=== PATIENT | male | born 1950 | race Caucasian/White ===

== ENCOUNTER 2019-05-13 13:39 | Emergency (ER) | payer OTHER ==
[~2019-05-13] VITALS: Ht 170.2 cm; Wt 80.7 kg
--- NOTE | 2019-05-13 14:30 | NUR ---
patient BIBRA c/o weakness, and sob x 3 days. On 02 @3lpm via [place]. Connected to the monitor and pulse ox. kept comfortable, will continue to monitor accordingly.
[2019-05-13 14:53] LABS: BASOPHILS # (AUTO) 0.1 /CMM (0.0-0.2); BASOPHILS % (AUTO) 0.9 % (0.0-2.0); EOSINOPHILS % (AUTO) 2.1 % (0.0-6.0); HEMATOCRIT 34 % (39-51); HEMOGLOBIN 10.7 g/dL (13.5-17.5); LYMPHOCYTES # (AUTO) 1.1 /CMM (0.8-4.8); LYMPHOCYTES % (AUTO) 12.5 % (20.0-44.0); MEAN CORPUSCULAR HGB CONC 31 g/dl (31.0-36.0); MEAN CORPUSCULAR VOLUME 82 fL (80-96); MONOCYTES # (AUTO) 0.9 /CMM (0.1-1.30); MONOCYTES % (AUTO) 10.7 % (2.0-12.0); NEUTROPHILS # (AUTO) 6.4 /CMM (1.8-8.9); NEUTROPHILS % (AUTO) 73.8 % (43.0-81.0); PLATELET COUNT (AUTO) 249 /CMM (150-450); RED BLOOD CELL COUNT(AUTO) 4.15 MIL/uL (4.5-6.0); WHITE BLOOD COUNT (AUTO) 8.6 K/uL (4.3-11.0)
[2019-05-13 15:02] LABS: CALCIUM, SERUM 8.8 mg/dL (8.5-10.1); CARBON DIOXIDE 35 mmol/L (21-32); CHLORIDE 105 mmol/L (98-107); CREATININE 0.7 mg/dL (0.6-1.3); GLUCOSE 105 mg/dL (74-106); POTASSIUM 4.3 mmol/L (3.5-5.1); SODIUM SERUM 146 mmol/L (136-145); UREA NITROGEN, BLOOD 18 mg/dL (7-18)
[2019-05-13 15:15] LABS: B-TYPE NATRIURETIC PEPTIDE 470 PG/ML (0-125)
[2019-05-13 15:36] LABS: ABG BASE EXCESS 5.8 mmol/L; ABG OXYGEN SATURATION 89.3 % (92.0-98.5); ABG PCO2 48.2 mmHg (35.0-45.0); ABG PH 7.427 (7.350-7.450); COHb 1.3 % (0.5-1.5); MetHb 0.5 % (0.0-1.5); O2Hb 87.7 % (94.0-97.0); SITE, ABG Right Brachial; VENT MODE, BG NASAL CANNULA
[2019-05-13] MEDS ORDERED: FUROSEMIDE 100 MG/10 ML VIAL ONE (15:58)
--- NOTE | 2019-05-13 15:59 | NUR ---
CALLED [facility], AWAITING FOR CALL FROM [place] [facility]
[2019-05-13] MEDS: FUROSEMIDE 40 MG/4 ML VIAL IV ONE (16:00)
[2019-05-13] MEDS ORDERED: LATA2.5D7 EACHEYE (17:01)
[2019-05-13] MEDS ORDERED: OLAN2.5T3 PO (17:01)
[2019-05-13] MEDS ORDERED: LISI-603 PO (17:01)
[2019-05-13] MEDS ORDERED: HYDR-4076 PO (17:01)
[2019-05-13] MEDS ORDERED: HYDR-4384 PO (17:01)
[2019-05-13] MEDS ORDERED: GABA-534 PO (17:01)
[2019-05-13] MEDS ORDERED: DOCU-141 PO (17:01)
[2019-05-13] MEDS ORDERED: ATOR20TA PO (17:05)
[2019-05-13] MEDS ORDERED: POTA10TA15 PO (17:05)
[2019-05-13] MEDS ORDERED: AMLO5TAB4 PO (17:05)
[2019-05-13] MEDS ORDERED: CARB-93 PO (17:05)
[2019-05-13] MEDS ORDERED: CARB1CAP7 PO (17:05)
[2019-05-13] MEDS ORDERED: CYAN500T64 PO (17:05)
[2019-05-13] MEDS ORDERED: CALC-7 PO (17:05)
[2019-05-13] MEDS ORDERED: ACET-2605 PO (17:06)
[2019-05-13] MEDS ORDERED: LEVOFLOXACIN 500 MG /D5W 100ML 100 ML IV ONE (18:59)
[2019-05-13] MEDS: LEVOFLOXACIN 500 MG /D5W 100ML 500 MG/100 ML PIGGYBACK IV ONE (19:00)
--- NOTE | 2019-05-13 19:00 | NUR ---
TURNED IN MOVE SHEET, CALLED FOR BED
--- NOTE | 2019-05-13 19:36 | NUR ---
PT ACCEPTED TO [facility] BY DR LION. # FOR REPORT [phone]. ETA 2015
--- NOTE | 2019-05-13 19:44 | NUR ---
CALLED FOR REPORT. NO RESPONSE.
[2019-05-13 19:46] VITALS: BP 94/73
--- NOTE | 2019-05-13 20:11 | NUR ---
CALLED FOR REPORT. NO RESPONSE
--- NOTE | 2019-05-13 20:40 | NUR ---
TRIED CALLING FOR REPORT. NO RN AVAILABLE FOR REPORT.
== END 2019-05-13 21:05 | disposition short-term general hospital (02) ==
LOC: ER 13:43
DX: J18.9 Pneumonia, unspecified organism (principal); J81.1 Chronic pulmonary edema; G20 Parkinson's disease; I25.10 Atherosclerotic heart disease of native coronary artery without angina pectoris; G62.9 Polyneuropathy, unspecified; Z88.1 Allergy status to other antibiotic agents; Z88.8 Allergy status to other drugs, medicaments and biological substances
CPT/HCPCS: 36415; 36600; 71045; 80048; 83880; 84484; 85025; 93005; 96365; 96375; 99291; J1940; J1956